=== PATIENT | male | born 1935 | race Caucasian/White ===

== ENCOUNTER → 2016-02-16 | Outpatient (CLI) | payer MEDICARE ==
[~2016-02-16] MED LIST: ASPIRIN325 MG PO; ATENOLOL25 MG PO; ATENOLOL50 MG PO; COLACE100 MG/10 PO; DOCUSATE SODIUM; FERROUS SULFAT325 M1 PO; FOLIC ACID; MELOXICAM15 MG PO; MOBIC15 MG PO; OMEPRAZOLE40 MG PO; OXYCODONE; PERCOCET 325 MG1 TA7 PO; POTASSIUM; PROTONIX40 MG PO; SERTRALINE HCL100 MG PO; SERTRALINE25 MG PO; SIMVASTATIN40 MG PO; VERAPAMIL ER; VIT B 1; VIT B 12; VITAMIN D-32000 UNI1 PO; XANAX0.25 MG PO; [UNRECOGNIZED DRUG - OTHER]
== END | disposition home or self-care (01) ==
LOC: LAB 09:48
DX: R63.4 Abnormal weight loss (principal); R89.9 Unspecified abnormal finding in specimens from other organs, systems and tissues; R06.02 Shortness of breath; Z87.891 Personal history of nicotine dependence; I10 Essential (primary) hypertension; M25.50 Pain in unspecified joint

== ENCOUNTER → 2016-02-27 | Day surgery (SDC) | payer MEDICARE ==
[2016-02-25 10:04] LABS: BASO # 0.1 10*3/uL (0.0-0.1); EOS # 0.3 10*3/uL (0.0-0.4); EOS % 3.6 % (1.0-4.0); HEMOGLOBIN 12.5 g/dl (14.0-18.0); LYMPH # 1.4 10*3/uL (1.3-4.4); LYMPH % 19.2 % (27.0-41.0); MEAN CELL VOLUME 105.1 fl (80.0-94.0); MEAN CORPUSCULAR HGB 33.7 pg (27.0-31.0); MEAN CORPUSCULAR HGB CONC 32.1 g/dl (33.0-37.0); MONO # 0.6 10*3/uL (0.1-1.0); MONO % 8.6 % (3.0-9.0); NEUT # 4.9 10*3/uL (2.3-7.9); NEUT % 67.3 % (47.0-73.0); PLATELET COUNT AUTOMATED 191 10*3/uL (130-400); RED BLOOD COUNT 3.71 10*6/uL (4.50-5.90); RED CELL DISTRI WIDTH 13.2 % (0-14.5); WHITE BLOOD COUNT 7.2 10*3/uL (4.8-10.8)
[2016-02-25 10:27] LABS: INTERNATIONAL NORM RATIO 1.1 (2.0-3.5); PROTHROMBIN TIME 11.2 SECONDS (9.0-12.4)
[2016-02-25 10:31] LABS: BUN 24 mg/dl (7-24); CARBON DIOXIDE 27 mmol/L (21-32); CHLORIDE 107 mmol/L (98-107); EST GLOM FILT AFRICAN AMERICAN > 60 ml/min; GLUCOSE 109 mg/dL (65-99); POTASSIUM 4.2 mmol/L (3.5-5.1); SODIUM 142 mmol/L (136-145)
[2016-02-25 10:40] LABS: BILIRUBIN NEGATIVE (NEGATIVE); BLOOD NEGATIVE (NEGATIVE); CLARITY CLEAR (CLEAR); COLOR YELLOW (YELLOW); GLUCOSE NEGATIVE (NEGATIVE); KETONE NEGATIVE (NEGATIVE); LEUKO ESTERASE NEGATIVE (NEGATIVE); NITRITE NEGATIVE (NEGATIVE); PH 6.5 (5.0-9.0); PROTEIN NEGATIVE (NEGATIVE); UROBILINOGEN 0.2 E.U./dl (0.2-1.0)
[2016-02-25 11:02] LABS: BACTERIA TRACE; WBC 0-2 wbc/hpf (0-5)
[~2016-02-27] VITALS: Ht 180.3 cm; Wt 78.5 kg
--- NOTE | ~2016-02-27 | PROC NOTE ---
[place], [place] PROCEDURE NOTE NAME: JESSICA NEW [facility] #: [id number] UNIT #: [id number] ROOM: DOCTOR: ANDI BLANK MD BIRTHDATE: [birth year] DOS: 02/27/2016 PREOPERATIVE DIAGNOSIS: Abnormal weight loss. POSTOPERATIVE DIAGNOSES: Hiatal hernia, pancolonic diverticulosis. PROCEDURE: Esophagogastroduodenoscopy with colonoscopy. ENDOSCOPIST: Andi Blank MD LEAD NITRATE PROCESSOR: MS3. ANESTHESIA: MAC. INDICATIONS: This is an 80-year-old gentleman referred by his family care physician for workup of abnormal weight loss. It was decided to take the patient to the endoscopy suite for a colonoscopy and an EGD. The procedure and its complications were explained to the patient preoperatively in detail. Complications that were discussed included but were not limited to bleeding, colon perforation, stomach perforation, and missed lesions. He agreed to proceed. DESCRIPTION OF PROCEDURE: After identifying the patient, the patient was brought to the endoscopy suite and laid in the left lateral position. After a time-out procedure was called, sedation was administered and a bite block was placed and EGD was performed first. An adult gastroscope was introduced into the mouth and advanced sequentially into the pharynx, esophagus, and stomach as well as the first 2 parts of the duodenum. There was found to be hiatal hernia which was uncomplicated, but otherwise, the mucosa of the esophagus, stomach and the duodenum was within normal limits. These findings were confirmed upon retroflexion of the scope in the stomach. The scope was withdrawn and then I proceeded to perform the colonoscopy. A digital rectal exam was performed, which was within normal limits. An adult colonoscope was now introduced into the anal canal and advanced sequentially into the sigmoid colon, descending colon, transverse colon, and ascending colon up to the cecum. There was found to be diverticulosis mainly in the sigmoid colon as well as in the transverse and some in the ascending colon as well. However, I could not identify any mucosal abnormalities. Upon reaching the cecum, the scope was withdrawn. The total withdrawal time was approximately 7 minutes. There was no mucosal abnormality seen again and pancolonic diverticulosis was seen on withdrawal of the scope. After the scope was withdrawn, the patient was taken to the recovery room in stable fashion. There were no complications. Dr. Andi Blank, the attending endoscopist, was present throughout the operating case. Based on these findings and the patient's age, I would recommend that the patient not have any more colonoscopies unless there are symptoms that would necessitate another similar examination. These findings were discussed with the patient's postoperatively. I will talk to the patient in approximately 2-3 weeks in the office about these findings as well. [place], [place] PROCEDURE NOTE NAME: JESSICA NEW UNIT #: [id number] ROOM: DOCTOR: ANDI BLANK MD BIRTHDATE: [birth year] Andi Blank MD CM:PROCNOTE:PROCEDURE NOTE [id number] ANDI BLANK MD
[2016-02-27 08:05] VITALS: BP 135/78
[2016-02-27 09:05] VITALS: BP 77/49
[2016-02-27 09:20] VITALS: BP 83/57
[2016-02-27 09:35] VITALS: BP 98/62
== END | disposition home or self-care (01) ==
LOC: SDC 02-24 09:30
PROVIDERS: Surgery
DX: K57.30 Diverticulosis of large intestine without perforation or abscess without bleeding (principal); K44.9 Diaphragmatic hernia without obstruction or gangrene; F32.9 Major depressive disorder, single episode, unspecified; I10 Essential (primary) hypertension; J45.909 Unspecified asthma, uncomplicated; K21.9 Gastro-esophageal reflux disease without esophagitis; Z83.3 Family history of diabetes mellitus; Z82.49 Family history of ischemic heart disease and other diseases of the circulatory system

== ENCOUNTER 2016-07-06 09:35 | Inpatient (IN) | payer MEDICARE ==
[~2016-07-06] VITALS: Ht 180.3 cm; Wt 72.1 kg
[2016-07-06 09:40] VITALS: BP 83/64
[2016-07-06] MEDS ORDERED: METAMUCIL0.52 G1 PO (09:53)
[2016-07-06] MEDS ORDERED: VITAMIN B1250 MCG PO (09:55)
[2016-07-06 10:09] VITALS: BP 135/77
[2016-07-06 10:28] LABS: BASO # 0.1 10*3/uL (0.0-0.1); BASO % 0.6 % (0.0-1.0); EOS # 0.5 10*3/uL (0.0-0.4); HEMATOCRIT 37.9 % (42.0-52.0); HEMOGLOBIN 12.6 g/dl (14.0-18.0); LYMPH # 1.4 10*3/uL (1.3-4.4); LYMPH % 14.7 % (27.0-41.0); MEAN CELL VOLUME 99.7 fl (80.0-94.0); MEAN CORPUSCULAR HGB 33.2 pg (27.0-31.0); MEAN CORPUSCULAR HGB CONC 33.2 g/dl (33.0-37.0); MEAN PLATELET VOLUME 9.1 fl (9.6-12.3); MONO # 0.9 10*3/uL (0.1-1.0); MONO % 9.7 % (3.0-9.0); NEUT # 6.6 10*3/uL (2.3-7.9); NEUT % 69.7 % (47.0-73.0); PLATELET COUNT AUTOMATED 220 10*3/uL (130-400); RED CELL DISTRI WIDTH 13.1 % (0-14.5); WHITE BLOOD COUNT 9.4 10*3/uL (4.8-10.8)
[2016-07-06 10:49] LABS: BUN 33 mg/dl (7-24); CARBON DIOXIDE 24 mmol/L (21-32); CHLORIDE 110 mmol/L (98-107); EST GLOM FILT AFRICAN AMERICAN 52 ml/min; GLUCOSE 79 mg/dL (65-99); MAGNESIUM 1.8 mg/dL (1.5-2.1); POTASSIUM 4.4 mmol/L (3.5-5.1); SODIUM 141 mmol/L (136-145)
[2016-07-06 10:50] LABS: TROPONIN I < 0.015 ng/ml (<0.045)
[2016-07-06 12:12] VITALS: BP 94/52
[2016-07-06 12:26] LABS: LA>2 REFLEX 2 HR DRAW NOW
[2016-07-06 12:45] VITALS: BP 115/60
[2016-07-06 16:00] VITALS: BP 104/59
[2016-07-06] MEDS ORDERED: K-TAB10 MEQ PO (16:17)
[2016-07-06] MEDS ORDERED: CALAN120 M1 PO (16:17)
[2016-07-06] MEDS ORDERED: VITAMIN B-1100 M1 PO (16:18)
[2016-07-06] MEDS ORDERED: ZOCOR10 MG PO (18:06)
[2016-07-06 20:00] VITALS: BP 128/58
[2016-07-07] VITALS: BP 121/60
[2016-07-07 06:43] LABS: BASO # 0.1 10*3/uL (0.0-0.1); BASO % 0.8 % (0.0-1.0); EOS # 0.7 10*3/uL (0.0-0.4); EOS % 8.5 % (1.0-4.0); HEMATOCRIT 33.9 % (42.0-52.0); HEMOGLOBIN 11.1 g/dl (14.0-18.0); LYMPH # 1.6 10*3/uL (1.3-4.4); LYMPH % 19.7 % (27.0-41.0); MEAN CELL VOLUME 101.8 fl (80.0-94.0); MEAN CORPUSCULAR HGB 33.3 pg (27.0-31.0); MEAN CORPUSCULAR HGB CONC 32.7 g/dl (33.0-37.0); MEAN PLATELET VOLUME 9.3 fl (9.6-12.3); MONO # 0.8 10*3/uL (0.1-1.0); MONO % 10.1 % (3.0-9.0); NEUT # 4.8 10*3/uL (2.3-7.9); NEUT % 60.6 % (47.0-73.0); PLATELET COUNT AUTOMATED 190 10*3/uL (130-400); RED BLOOD COUNT 3.33 10*6/uL (4.50-5.90); WHITE BLOOD COUNT 7.9 10*3/uL (4.8-10.8)
[2016-07-07 06:52] LABS: INTERNATIONAL NORM RATIO 1.1 (2.0-3.5); PROTHROMBIN TIME 11.9 SECONDS (9.0-12.4)
[2016-07-07 07:35] LABS: VITAMIN D, 25-HYDROXY 27.8 ng/mL (30-100)
[2016-07-07 07:36] LABS: FOLIC ACID 8.86 ng/mL (>5.38)
[2016-07-07 07:56] LABS: ALBUMIN 2.8 gm/dl (3.1-4.5); ALKALINE PHOSPHATASE 62 U/L (45-117); BILIRUBIN, TOTAL 0.9 mg/dl (0.2-1.0); BUN 25 mg/dl (7-24); CARBON DIOXIDE 27 mmol/L (21-32); CHLORIDE 111 mmol/L (98-107); CHOLESTEROL 123 mg/dL (<200); EST GLOM FILT AFRICAN AMERICAN > 60 ml/min; FREE T4 1.09 ng/dl (0.76-1.46); GLUCOSE 87 mg/dL (65-99); HDL CHOLESTEROL 37 mg/dl (40-60); LDL CHOLESTEROL 66 mg/dL (9-159); MAGNESIUM 1.8 mg/dL (1.5-2.1); POTASSIUM 4.5 mmol/L (3.5-5.1); SGOT/AST 11 IU/L (3-35); SGPT/ALT 13 U/L (12-78); SODIUM 143 mmol/L (136-145); TOTAL PROTEIN 6.7 gm/dL (6.4-8.2); TRIGLYCERIDES 98 mg/dl (<150); VLDL CHOLESTEROL 20 mg/dL (6-40)
[2016-07-07 08:00] VITALS: BP 122/64
[2016-07-07 12:00] VITALS: BP 132/62
== END 2016-07-07 16:09 | disposition home or self-care (01) | DRG 314 ==
LOC: ED 09:35 → 5E 11:18 → EDHOLD 11:18 → 5E 11:52
PROVIDERS: Emergency Medicine; Internal Medicine Hospice and Palliative Medicine
DX: I95.9 Hypotension, unspecified (principal); N17.0 Acute kidney failure with tubular necrosis; E87.2 Acidosis; I47.1 Supraventricular tachycardia; J84.112 Idiopathic pulmonary fibrosis; D53.9 Nutritional anemia, unspecified; R00.1 Bradycardia, unspecified; I10 Essential (primary) hypertension; K44.9 Diaphragmatic hernia without obstruction or gangrene; K21.9 Gastro-esophageal reflux disease without esophagitis; E78.5 Hyperlipidemia, unspecified; K57.30 Diverticulosis of large intestine without perforation or abscess without bleeding; Z96.651 Presence of right artificial knee joint; Z96.652 Presence of left artificial knee joint; Z87.891 Personal history of nicotine dependence; Z82.49 Family history of ischemic heart disease and other diseases of the circulatory system; Z88.1 Allergy status to other antibiotic agents; Z98.49 Cataract extraction status, unspecified eye; Z88.8 Allergy status to other drugs, medicaments and biological substances; Z79.82 Long term (current) use of aspirin; Z79.899 Other long term (current) drug therapy

== ENCOUNTER 2016-09-15 13:04 | Inpatient (IN) | payer MEDICARE ==
[~2016-09-15] VITALS: Ht 177.8 cm; Wt 66.5 kg
--- NOTE | ~2016-09-15 | PROC NOTE ---
[place], [place] PROCEDURE NOTE [id number] UNIT #: [id number] ROOM: 505 DOCTOR: TEO MERCER MD,BENITO BIRTHDATE: [birth year] DOS: 09/17/2016 PROCEDURE: Bronchoscopy. PREOPERATIVE DIAGNOSIS: Persistent nonresolving cough. POSTOPERATIVE DIAGNOSES: Removal of the moderate amount of mucus impaction of major airways, bilaterally, without any difficulty. PROCEDURE DESCRIPTION: Informed consent was obtained from the patient. The patient was brought to the OR and placed in supine position. Conscious sedation was administered by the Anesthesia Department. After achieving appropriate sedation, airway introduced into the mouth. Bronchoscope was advanced into the airway into laryngeal area. Epiglottis and vocal cords were seen. The vocal cords were noted yellowish in color moving symmetrically with the movements. The bronchoscope was advanced to the vocal cord and tracheal lumen, which showed moderate amount of thick mucoid secretions which was suctioned out the carmen level. Carmen noted sharp. Moderate amount of mucus plugs were noted of major airways. Right upper, right middle, right lower, left upper, lingular lower lobe were examined. Bronchial washing was collected and sent for the cultures. Procedure was tolerated by the patient without any difficulty. Postoperative findings were discussed with the patient's family members in detail. BENITO BRUCE MD CM:PROCNOTE:PROCEDURE NOTE [id number] BENITO MERCER MD
--- NOTE | ~2016-09-15 | CON ---
[place], [place] REPORT OF CONSULTATION NAME: JESSICA NEW [facility] #: [id number] UNIT #: [id number] ROOM: 505 DOCTOR: TEO MERCER MDBENITO BIRTHDATE: [birth year] DOS: 09/16/2016 PULMONARY CONSULTATION EVALUATION AND MANAGEMENT CONSULTATION REQUESTED BY: Hospitalist service. REASON FOR CONSULTATION: Assessment of cough and past history of pulmonary fibrosis. HISTORY OF PRESENT ILLNESS: This is an 80-year-old white male who has been known to me from the past with history of sarcoidosis with pulmonary fibrosis which was diagnosed with biopsy of the lymph node. The patient had a bronchoscopy as well as biopsy of the lymph node that was done in [facility] in 2012. The patient has been ____ managed as an outpatient, just observation, did not require any intervention for this pulmonary fibrosis. The patient reported symptoms of ____ chest pain. Denies any symptoms of wheezing. He does have a cough, which has been noted progressively worsened gradually. The cough, the patient described as present for the past month or so and not improving with current medical management. He denies any symptoms of chest pain. Denies symptoms of hemoptysis. He also reported symptoms of shortness of breath that occurs with exertion. REVIEW OF SYSTEMS: CONSTITUTIONAL: The patient was noted with symptoms of fatigue and tiredness. Denies symptoms of fever or chills. EYES: Denies any burning, redness, or tenderness. EARS, NOSE, AND THROAT: No sore throat, hoarseness, or otalgia. Postnasal drainage. CARDIOVASCULAR: Shortness of breath was noted without symptoms of anginal pain, edema or pain of the lower extremities. GASTROINTESTINAL: Denies dysphagia, nausea, vomiting, diarrhea, abdominal pain, hematemesis, melena, or hematochezia. SKIN: Denies any lesions or rashes. GENITOURINARY: Denies dysuria, suprapubic pain, or hematuria. MUSCULOSKELETAL: Denies acute joint pain, redness, or tenderness. Remaining systems were reviewed with the patient, they were noted all negative. PAST MEDICAL HISTORY: 1. History of ____ sarcoidosis. 2. Osteoarthritis. 3. Anxiety neurosis. 4. Essential hypertension. 5. Hyperlipidemia. 6. Atrial fibrillation. 7. AV deepa re-entry tachycardia. 8. Gastroesophageal reflux. 9. Hiatal hernia. 10. Vitamin D deficiency. PAST SURGICAL HISTORY: [place], [place] REPORT OF CONSULTATION [id number] UNIT #: [id number] ROOM: [facility] DOCTOR: TEO MERCER MDBENITO BIRTHDATE: 35 1. Cataract extraction with lens implantation. 2. Tonsillectomy and adenoidectomy. 3. Left total knee replacement. 4. AV node ablation done at [facility] in [place], [place]. 5. Fiberoptic bronchoscopy with ultrasound-guided needle aspiration biopsy of the lymph node in May 2012. SOCIAL HISTORY: The patient is , has 2 children. 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 He has not been known with any history of alcohol use or any illicit drug use. Tobacco use noted since age of [age] years old, a pack of cigarettes per day until 1961. FAMILY HISTORY: Father at the age of 6969 years old, complications related to myocardial infarction. Mother at age of 8989 years old secondary to congestive heart failure. MEDICATIONS: Listed at the time of admission were noted as use of Eliquis, atenolol, vitamin B12, meloxicam, Remeron, omeprazole, Metamucil, simvastatin, verapamil, and other p.r.n. medications. DRUG ALLERGIES: 1. AMOXICILLIN. 2. CHLORPROMAZINE. 3. TETRACYCLINES. PHYSICAL EXAMINATION: GENERAL: This is an 80-year-old white male who has been noted currently awake and alert without any acute distress at this time. Height 5 feet 10 inches. Weight 106 pounds, BMI 21.0. VITAL SIGNS: Normal temperature, respiratory rate 18-20, heart rate 52-80, blood pressure 91/60-108/57. Pulse oxygen saturation noted on room air 100%. HEENT: Shows head was atraumatic. Eyes: No icterus. NECK: Supple. CARDIOVASCULAR: S1, S2 audible. LUNGS: Moderately decreased breath sounds noted without any wheezing. Scattered inspiratory crackles bilaterally. ABDOMEN: Soft, flat, and nontender. EXTREMITIES: Showed no edema, clubbing, or cyanosis. LABORATORY DATA: The patient's lactic acid yesterday on admission 1.3, normal. CBC yesterday on admission, WBC count 14.3, hemoglobin 9.9, hematocrit 30.6, and platelet count 121,000. PT/INR 1.4. CMP yesterday on admission, BUN 32 and creatinine normal. Albumin 2.5. Remaining LFTs normal. Troponin yesterday and this morning, total of 3 sets were normal. CBC today, WBC count 11,000, hemoglobin 9.3, hematocrit 29.1, and platelet count was normal. CMP this morning, BUN 31 and creatinine was normal. The chest x-ray 1 view, which was taken at the Emergency Room on 09/15/2016, evidence of pulmonary fibrotic changes noted in the lungs bilaterally, greater in the right upper than the other lungs. Enlargement of the mediastinal ____ lymphadenopathy. [place], [place] REPORT OF CONSULTATION NAME: JESSICA NEW UNIT #: [id number] ROOM: [facility] DOCTOR: BENITO TO MD BIRTHDATE: [birth year] IMPRESSION: 1. The patient was ____ history of diagnosis of sarcoidosis with lymph node biopsy using the endobronchial ultrasound biopsy in May 2012. 2. Acute severe bronchitis noted and mucus impaction, progression of symptoms over a month. 3. Anemia, most likely chronic disease. 4. Mild azotemia noted, likely intravascular volume depletion. 5. History of atrial fibrillation, on anticoagulation with Eliquis. PLAN OF MANAGEMENT: The patient will be suggested about bronchoscopy. Risks and benefits of the procedure were discussed and he agreed with that. ____ clear the mucus impaction of major airway. The Eliquis was placed on hold temporarily until completion of the procedure. The Eliquis could be resumed tomorrow afternoon if there have been no complications with bronchoscopy. Continue other supportive therapy, plan of management and care. Usual treatment. Intravenous Rocephin 1 g daily. Further treatment changes will be done for the patient based on progression of the illness. BENITO BRUCE MD CM:CONSTR:REPORT OF CONSULTATION 1211 09/16/16 1500 interface
--- NOTE | ~2016-09-15 | PR ---
[place], [place] PROGRESS NOTE NAME: JESSICA NEW [facility] #: [id number] UNIT #: [id number] ROOM: 505 DOCTOR: TEO MERCER MD,BENITO BIRTHDATE: [birth year] DOS: 09/19/2016 SUBJECTIVE: He has been noted further reduction and improvement in symptoms of cough. Denies symptoms of chest pain. Denies any abdominal pain. Shortness of breath has been noted minimal. OBJECTIVE: VITAL SIGNS: Normal temperature, respiratory rate 20, heart rate 110-91, blood pressure 100/70-102/74. The pulse oxygen saturation on room air was 96% saturation. HEENT: Examination shows no acute change. NECK: Supple. CARDIOVASCULAR: S1, S2 audible. LUNGS: Noted without any wheezing or crackles. Breaths are noted [id number] decreased bilaterally. ABDOMEN: Soft, nontender. LABORATORY DATA: CBC of the patient that was done this morning noted as WBC count 11.8, hemoglobin 10.4, hematocrit 31.3, platelet count normal. Culture of the bronchial washing of the patient was noted with normal ladonna. The CMP of the patient this morning was noted as normal BUN and creatinine. IMPRESSION: The patient with acute tracheobronchitis with a history of sarcoidosis, acute bronchitis and cough, which has been noted with gradual improvement. PLAN OF TREATMENT: Continuation of the bronchodilators at his home, consider discharge home on oral antibiotics and other medications. Follow up in the office was advised couple of weeks post discharge. BENITO BRUCE MD CM:PNTRANS [id number] [id number] BENITO MERCER MD 09/19/16 2359 interface
--- NOTE | ~2016-09-15 | CON ---
[place], [place] REPORT OF CONSULTATION NAME: JESSICA NEW [facility] #: [id number] UNIT #: [id number] ROOM: 505 DOCTOR: DEENA MCCORDDANNIADINA BIRTHDATE: [birth year] DOS: 09/16/2016 REQUESTING PHYSICIAN: Dr. No. REASON FOR CONSULTATION: Atrial fibrillation. ASSESSMENT: 1. 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 2. Evidence of bronchitis per Dr. Palma. 3. History of pulmonary fibrosis/sarcoidosis. 4. History of atrial fibrillation, status post ablation with Dr. Patten. 5. Hyperlipidemia. 6. Anemia. 7. Normal ejection fraction on echocardiogram read by Dr. Adrian. PLAN: 1. Continue Eliquis. 2. Antibiotic per Dr. Palma. 3. Hold on any negative chronotropic agents. 4. No further cardiac testing at this time. 5. Early followup with Dr. Patten to address patient's taoist of normal sinus rhythm as an outpatient. 6. Increase activity. HISTORY AND PHYSICAL: The patient is a pleasant 80-year-old gentleman well known to our practice. 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 Apparently, the patient failed his ablation and underwent a ALLEY cardioversion at the [facility] with Dr. Noel. He has been doing quite well. He still works as a meier. Yesterday he started noticing while standing up, he was getting dizzy, lightheaded, symptoms got worse and this was along with some cough, some chills that is productive of yellowish sputum and the patient finally presented to the Emergency Room. The patient was found not to be in atrial fibrillation with a relatively controlled heart rate. There is no fever, no night sweats. Maintained good appetite, no weight loss. The patient reported significant improvement since yesterday while on the current antibiotic regimen. From the cardiology point of view, he denies any symptomatic palpitation or any associated dizziness, lightheadedness or near syncope. No chest pain, no chest pressure, no heaviness, no tightness, no left arm pain, no back pain. He sleeps on one pillow with no reported PND, orthopnea, or pedal edema. The patient overall has been relatively well before yesterday. PAST MEDICAL HISTORY: As detailed in my assessment. SOCIAL HISTORY: The patient denies any current tobacco, alcohol or illicit drug abuse. FAMILY HISTORY: Not applicable in view of patient's age. [place], [place] REPORT OF CONSULTATION NAME: JESSICA NEW UNIT #: [id number] ROOM: [facility] DOCTOR: NO SHAFFER MD BIRTHDATE: [birth year] CURRENT MEDICATIONS: Include azithromycin, thiamine, Protonix, Zocor, Remeron, Eliquis, Restoril, Zofran, Dulcolax, and Rocephin. ALLERGIES: THE PATIENT IS ALLERGIC TO AMPICILLIN, TETRACYCLINE AND CHLORPROMAZINE. REVIEW OF SYSTEMS: Currently, the patient denies any headache, diplopia or blurry vision. No fever, no chills, no night sweats. No abdominal pain, no bright red blood per rectum or tarry stools. The patient admits to joint pain, but no muscular pain. No anxiety, no depression. No polyuria, no polydipsia, no skin rash. Review of all other systems has been negative. PHYSICAL EXAMINATION: GENERAL: The patient is alert, oriented x3, quite pleasant. The patient sitting up in bed, does not appear in distress, just finished his lunch. VITAL SIGNS: Blood pressure 107/81, heart rate 69, respiratory rate of 18, temperature 98. HEENT: Extraocular muscles intact. Pupils equal, round, reactive to light. Conjunctivae, no pallor. Throat, no petechiae. NECK: Good carotid upstroke. Unable to appreciate any bruit. No lymphadenopathy, no thyromegaly. HEART: S1, S2 with a holosystolic murmur at left sternal border. Distant heart sounds. No rub, no retrosternal heave. CHEST AND BACK: No deformities. LUNGS: Significant decrease in air movement, but no mina wheezing or rales. ABDOMEN: Soft, nontender, present bowel sounds, no masses, no bruits. EXTREMITIES: Lower extremities, no edema with faint distal pulses. NEUROLOGIC: Grossly nonfocal. SKIN: No significant rash. LABORATORY DATA: White count 11.0, hemoglobin 9.3. There is no current left shift compared to yesterday when the patient had elevated neutrophils of 86%. Potassium 3.9. GFR more than 60. Normal liver function test except for low ALT of 11, albumin 2.2, total protein 6.5, HDL 29, total cholesterol 104, LDL 61 and triglycerides 69. Normal thyroid function test. NO SHAFFER MD CM:CONSTR:REPORT OF CONSULTATION 1549 09/17/16 0019 interface
--- NOTE | ~2016-09-15 | PR ---
[place], [place] PROGRESS NOTE [id number] UNIT #: [id number] ROOM: 505 DOCTOR: TEO MERCER MD,BENITO BIRTHDATE: [birth year] DOS: 09/17/2016 SUBJECTIVE: He has been noted to be n.p.o. past midnight for bronchoscopy. He is still noted to be coughing which has been noted to be nonproductive. He denies symptoms of chest pain. He denies symptoms of hemoptysis. OBJECTIVE: VITAL SIGNS: Normal temperature, respiratory rate of 20, heart rate 80 and blood pressure 126/64. The pulse oxygen saturation noted on 2 L nasal cannula was 100% saturation. HEENT: Shows no acute change. NECK: Supple. CARDIOVASCULAR: S1, S2 audible. LUNGS: Noted with moderate decreased breath sounds, scattered expiratory wheezing. ABDOMEN: Soft, nontender. LABORATORY DATA: CBC today: WBC count 16.2, hemoglobin 10.7, hematocrit 33.8 and platelet count was normal. Culture of the urine showed no bacterial growth. BMP this morning: Normal BUN, creatinine and electrolytes. IMPRESSION: The patient who has been noted currently stable at the present time is noted with persistent coughing. The patient has a history of sarcoidosis and other problems. N.p.o. past midnight for bronchoscopy. PLAN OF TREATMENT: The patient would be continued with current plan of treatment at this time without any changes. The Eliquis was placed on hold for the bronchoscopy today. However, the Eliquis could be resumed after his bronchoscopy if there would be no complications. BENITO BRUCE MD CM:PNTRANS 0946 1005 BENITO MERCER MD 09/17/16 1005 interface
--- NOTE | ~2016-09-15 | PR ---
[place], [place] PROGRESS NOTE NAME: JESSICA NEW [facility] #: [id number] UNIT #: [id number] ROOM: 505 DOCTOR: TEO MERCER MD,BENITO BIRTHDATE: [birth year] DOS: 09/18/2016 SUBJECTIVE: He has a bronchoscopy done yesterday with mild reduction in the cough was noted. There were no symptoms of chest pain or any abdominal pain. OBJECTIVE: VITAL SIGNS: For the patient which were recorded showed normal temperature, respiratory rate 18, heart rate 99, blood pressure 108/58. Pulse oxygen saturation on room air was 97% saturation. HEENT: Showed no acute change. NECK: Supple. CARDIOVASCULAR SYSTEM: S1, S2 audible. LUNGS: The patient was noted without any wheezing or crackles at this time. ABDOMEN: Soft, nontender. IMPRESSION: The patient has a history of sarcoidosis with acute tracheobronchitis with status post bronchoscopy and removal of the mucous impaction with reduction of the symptoms. PLAN OF TREATMENT: No changes from the pulmonary standpoint. Monitor culture results. Consider possible discharge home in the morning. Continue other supportive therapy, plan of management and care. Usual treatments. BENITO BRUCE MD CM:SHIKHA [id number] 1302 BENITO MERCER MD 09/18/16 1302 interface
[~2016-09-15 13:04] MED LIST changes: +CALAN120 M1 PO; +K-TAB10 MEQ PO; +METAMUCIL0.52 G1 PO; +VITAMIN B-1100 M1 PO; +VITAMIN B1250 MCG PO; +ZOCOR10 MG PO
[2016-09-15 13:25] VITALS: BP 98/72
[2016-09-15 14:23] LABS: BASO # 0.1 10*3/uL (0.0-0.1); BASO % 0.4 % (0.0-1.0); EOS # 0.1 10*3/uL (0.0-0.4); EOS % 0.6 % (1.0-4.0); HEMATOCRIT 30.6 % (42.0-52.0); HEMOGLOBIN 9.9 g/dl (14.0-18.0); IG # 0.1 10*3/uL (0.0-0.1); LYMPH # 0.9 10*3/uL (1.3-4.4); LYMPH % 6.3 % (27.0-41.0); MEAN CELL VOLUME 100.3 fl (80.0-94.0); MEAN CORPUSCULAR HGB 32.5 pg (27.0-31.0); MEAN CORPUSCULAR HGB CONC 32.4 g/dl (33.0-37.0); MONO # 0.9 10*3/uL (0.1-1.0); NEUT # 12.3 10*3/uL (2.3-7.9); NEUT % 86.3 % (47.0-73.0); PLATELET COUNT AUTOMATED 221 10*3/uL (130-400); RED BLOOD COUNT 3.05 10*6/uL (4.50-5.90); RED CELL DISTRI WIDTH 13.4 % (0-14.5); WHITE BLOOD COUNT 14.2 10*3/uL (4.8-10.8)
[2016-09-15 14:34] VITALS: BP 92/50
[2016-09-15 14:34] LABS: INTERNATIONAL NORM RATIO 1.4 (2.0-3.5); PROTHROMBIN TIME 14.6 SECONDS (9.0-12.4)
[2016-09-15 14:46] LABS: ALBUMIN 2.5 gm/dl (3.1-4.5); ALKALINE PHOSPHATASE 59 U/L (45-117); BILIRUBIN, TOTAL 0.9 mg/dl (0.2-1.0); BUN 33 mg/dl (7-24); CARBON DIOXIDE 23 mmol/L (21-32); CHLORIDE 107 mmol/L (98-107); CPK 56 U/L (39-308); EST GLOM FILT AFRICAN AMERICAN > 60 ml/min; GLUCOSE 113 mg/dL (65-99); LDH 159 U/L (87-241); MAGNESIUM 1.9 mg/dL (1.5-2.1); POTASSIUM 3.9 mmol/L (3.5-5.1); SGOT/AST 7 IU/L (3-35); SGPT/ALT 11 U/L (12-78); SODIUM 138 mmol/L (136-145); TOTAL PROTEIN 7.1 gm/dL (6.4-8.2)
[2016-09-15 14:47] LABS: CKMB 1.2 ng/ml (0.5-3.6); TROPONIN I < 0.015 ng/ml (<0.045)
[2016-09-15 15:33] LABS: BILIRUBIN 1+ (NEGATIVE); BLOOD TRACE-INTACT (NEGATIVE); CLARITY CLEAR (CLEAR); COLOR YELLOW (YELLOW); GLUCOSE NEGATIVE (NEGATIVE); KETONE NEGATIVE (NEGATIVE); LEUKO ESTERASE 1+ (NEGATIVE); NITRITE NEGATIVE (NEGATIVE); PH 5.5 (5.0-9.0); PROTEIN NEGATIVE (NEGATIVE)
[2016-09-15 15:41] LABS: BACTERIA TRACE; RBC 0-2 rbc/hpf (0-2); URINE REFLEX COMMENT YES (NO)
[2016-09-15 15:54] VITALS: BP 90/46
[2016-09-15 16:15] VITALS: BP 90/50
[2016-09-15 17:03] VITALS: BP 98/64
[2016-09-15] MEDS ORDERED: ELIQUIS5 M1 PO (17:29)
[2016-09-15] MEDS ORDERED: MIRTAZAPINE15 M2 PO (18:45)
[2016-09-15 20:00] VITALS: BP 92/49
[2016-09-16] VITALS: BP 108/57
[2016-09-16 04:00] VITALS: BP 108/57
[2016-09-16 06:04] LABS: BASO # 0.1 10*3/uL (0.0-0.1); BASO % 0.5 % (0.0-1.0); EOS # 0.6 10*3/uL (0.0-0.4); EOS % 5.4 % (1.0-4.0); HEMATOCRIT 29.1 % (42.0-52.0); HEMOGLOBIN 9.3 g/dl (14.0-18.0); IG # 0.1 10*3/uL (0.0-0.1); LYMPH # 1.6 10*3/uL (1.3-4.4); LYMPH % 14.7 % (27.0-41.0); MEAN CELL VOLUME 101.7 fl (80.0-94.0); MEAN CORPUSCULAR HGB 32.5 pg (27.0-31.0); MEAN PLATELET VOLUME 9.5 fl (9.6-12.3); MONO % 8.9 % (3.0-9.0); NEUT # 7.7 10*3/uL (2.3-7.9); PLATELET COUNT AUTOMATED 211 10*3/uL (130-400); RED BLOOD COUNT 2.86 10*6/uL (4.50-5.90); RED CELL DISTRI WIDTH 13.5 % (0-14.5)
[2016-09-16 06:28] LABS: ALBUMIN 2.2 gm/dl (3.1-4.5); ALKALINE PHOSPHATASE 54 U/L (45-117); BILIRUBIN, TOTAL 0.6 mg/dl (0.2-1.0); BUN 31 mg/dl (7-24); CARBON DIOXIDE 25 mmol/L (21-32); CHLORIDE 108 mmol/L (98-107); CHOLESTEROL 104 mg/dL (<200); EST GLOM FILT AFRICAN AMERICAN > 60 ml/min; FREE T4 1.47 ng/dl (0.76-1.46); GLUCOSE 88 mg/dL (65-99); HDL CHOLESTEROL 29 mg/dl (40-60); LDL CHOLESTEROL 61 mg/dL (9-159); MAGNESIUM 1.5 mg/dL (1.5-2.1); PHOSPHOROUS 2.7 mg/dL (2.5-4.9); POTASSIUM 3.9 mmol/L (3.5-5.1); SGOT/AST 6 IU/L (3-35); SGPT/ALT 11 U/L (12-78); SODIUM 139 mmol/L (136-145); TOTAL PROTEIN 6.5 gm/dL (6.4-8.2); TRIGLYCERIDES 69 mg/dl (<150); VLDL CHOLESTEROL 14 mg/dL (6-40)
[2016-09-16 06:34] LABS: THYROID STIM HORMONE (HS) 0.995 uIU/ml (0.358-4.75)
[2016-09-16 07:10] LABS: HEMOGLOBIN A1c 5.5 % (4.8-5.6)
[2016-09-16 07:29] LABS: FOLIC ACID 7.76 ng/mL (>5.38); VITAMIN D, 25-HYDROXY 31.8 ng/mL (30-100)
[2016-09-16 08:00] VITALS: BP 91/62
[2016-09-16 12:00] VITALS: BP 107/81
[2016-09-16 16:00] VITALS: BP 118/73
[2016-09-16 20:00] VITALS: BP 108/73
[2016-09-17] VITALS (9 sets, daily range): BP systolic 99–126; BP diastolic 55–67
[2016-09-17 06:27] LABS: BASO # 0.1 10*3/uL (0.0-0.1); BASO % 0.4 % (0.0-1.0); EOS # 0.8 10*3/uL (0.0-0.4); EOS % 4.9 % (1.0-4.0); HEMATOCRIT 33.8 % (42.0-52.0); HEMOGLOBIN 10.7 g/dl (14.0-18.0); IG # 0.1 10*3/uL (0.0-0.1); LYMPH # 1.5 10*3/uL (1.3-4.4); LYMPH % 9.3 % (27.0-41.0); MEAN CELL VOLUME 102.1 fl (80.0-94.0); MEAN CORPUSCULAR HGB 32.3 pg (27.0-31.0); MEAN CORPUSCULAR HGB CONC 31.7 g/dl (33.0-37.0); MEAN PLATELET VOLUME 9.4 fl (9.6-12.3); MONO # 1.5 10*3/uL (0.1-1.0); MONO % 9.1 % (3.0-9.0); NEUT # 12.3 10*3/uL (2.3-7.9); NEUT % 75.7 % (47.0-73.0); PLATELET COUNT AUTOMATED 260 10*3/uL (130-400); RED BLOOD COUNT 3.31 10*6/uL (4.50-5.90); RED CELL DISTRI WIDTH 13.3 % (0-14.5); WHITE BLOOD COUNT 16.2 10*3/uL (4.8-10.8)
[2016-09-17 06:53] LABS: BUN 24 mg/dl (7-24); CARBON DIOXIDE 27 mmol/L (21-32); CHLORIDE 104 mmol/L (98-107); EST GLOM FILT AFRICAN AMERICAN > 60 ml/min; GLUCOSE 92 mg/dL (65-99); POTASSIUM 3.9 mmol/L (3.5-5.1); SODIUM 137 mmol/L (136-145)
[2016-09-18] VITALS: BP 130/78
[2016-09-18 05:51] LABS: BASO # 0.1 10*3/uL (0.0-0.1); BASO % 0.5 % (0.0-1.0); EOS # 0.6 10*3/uL (0.0-0.4); EOS % 4.3 % (1.0-4.0); HEMATOCRIT 29.5 % (42.0-52.0); HEMOGLOBIN 9.5 g/dl (14.0-18.0); LYMPH # 1.4 10*3/uL (1.3-4.4); LYMPH % 10.5 % (27.0-41.0); MEAN CELL VOLUME 101.7 fl (80.0-94.0); MEAN CORPUSCULAR HGB 32.8 pg (27.0-31.0); MEAN CORPUSCULAR HGB CONC 32.2 g/dl (33.0-37.0); MEAN PLATELET VOLUME 9.4 fl (9.6-12.3); MONO # 1.1 10*3/uL (0.1-1.0); MONO % 8.4 % (3.0-9.0); PLATELET COUNT AUTOMATED 223 10*3/uL (130-400); RED CELL DISTRI WIDTH 13.4 % (0-14.5); WHITE BLOOD COUNT 13.2 10*3/uL (4.8-10.8)
[2016-09-18 08:00] VITALS: BP 125/74
[2016-09-18 12:00] VITALS: BP 108/58
[2016-09-18 16:00] VITALS: BP 100/52; BP 118/67
[2016-09-18 20:00] VITALS: BP 96/65
[2016-09-19] VITALS: BP 129/82
[2016-09-19 06:08] LABS: BASO % 0.3 % (0.0-1.0); EOS # 0.5 10*3/uL (0.0-0.4); EOS % 3.8 % (1.0-4.0); HEMATOCRIT 31.7 % (42.0-52.0); HEMOGLOBIN 10.4 g/dl (14.0-18.0); LYMPH # 1.4 10*3/uL (1.3-4.4); LYMPH % 11.5 % (27.0-41.0); MEAN CELL VOLUME 100.6 fl (80.0-94.0); MEAN CORPUSCULAR HGB CONC 32.8 g/dl (33.0-37.0); MEAN PLATELET VOLUME 9.6 fl (9.6-12.3); MONO # 1.1 10*3/uL (0.1-1.0); MONO % 9.4 % (3.0-9.0); NEUT # 8.8 10*3/uL (2.3-7.9); NEUT % 74.7 % (47.0-73.0); PLATELET COUNT AUTOMATED 264 10*3/uL (130-400); RED BLOOD COUNT 3.15 10*6/uL (4.50-5.90); RED CELL DISTRI WIDTH 13.3 % (0-14.5); WHITE BLOOD COUNT 11.8 10*3/uL (4.8-10.8)
[2016-09-19 06:27] LABS: ALBUMIN 2.4 gm/dl (3.1-4.5); BUN 16 mg/dl (7-24); CARBON DIOXIDE 26 mmol/L (21-32); CHLORIDE 104 mmol/L (98-107); GLUCOSE 96 mg/dL (65-99); POTASSIUM 4.2 mmol/L (3.5-5.1); SODIUM 137 mmol/L (136-145)
[2016-09-19 06:31] LABS: ALKALINE PHOSPHATASE 56 U/L (45-117); BILIRUBIN, TOTAL 0.7 mg/dl (0.2-1.0); EST GLOM FILT AFRICAN AMERICAN > 60 ml/min; SGOT/AST 10 IU/L (3-35); SGPT/ALT 16 U/L (12-78); TOTAL PROTEIN 6.9 gm/dL (6.4-8.2)
[2016-09-19 08:00] VITALS: BP 102/74; BP 132/88
[2016-09-19] MEDS ORDERED: AVPAK AZITHROM250 MG PO (10:38)
[2016-09-19] MEDS ORDERED: TOPROL XL50 M1 PO (10:38)
[2016-09-19] MEDS ORDERED: SUPRAX400 M2 PO (10:39)
[2016-09-19 12:00] VITALS: BP 100/70
[2016-09-19] MEDS ORDERED: Motrin,Rufen800 MG PO (15:04)
[2016-09-19 16:00] VITALS: BP 107/68
== END 2016-09-19 17:00 | disposition home or self-care (01) | DRG 314 ==
LOC: ED 13:04 → EDHOLD 16:12 → 5E 16:12
PROVIDERS: Family Medicine; Internal Medicine Critical Care Medicine; Internal Medicine Hospice and Palliative Medicine; Physician Assistant; Student in an Organized Health Care Education/Training Program
PROC: 0BB38ZX Excision of Right Main Bronchus, Via Natural or Artificial Opening Endoscopic, Diagnostic (ICD-10-PCS; principal; 2016-09-17)
PROC: 0BB78ZX Excision of Left Main Bronchus, Via Natural or Artificial Opening Endoscopic, Diagnostic (ICD-10-PCS; principal; 2016-09-17)
PROC: 0BC28ZZ Extirpation of Matter from Carina, Via Natural or Artificial Opening Endoscopic (ICD-10-PCS; principal; 2016-09-17)
DX: I95.9 Hypotension, unspecified (principal); R65.11 Systemic inflammatory response syndrome (SIRS) of non-infectious origin with acute organ dysfunction; E43 Unspecified severe protein-calorie malnutrition; I11.0 Hypertensive heart disease with heart failure; I50.32 Chronic diastolic (congestive) heart failure; N39.0 Urinary tract infection, site not specified; J84.112 Idiopathic pulmonary fibrosis; D86.9 Sarcoidosis, unspecified; I47.1 Supraventricular tachycardia; K21.9 Gastro-esophageal reflux disease without esophagitis; I48.91 Unspecified atrial fibrillation; E78.5 Hyperlipidemia, unspecified; E86.0 Dehydration; R73.9 Hyperglycemia, unspecified; D53.9 Nutritional anemia, unspecified; Z68.21 Body mass index [BMI] 21.0-21.9, adult; E55.9 Vitamin D deficiency, unspecified; E53.8 Deficiency of other specified B group vitamins; F32.9 Major depressive disorder, single episode, unspecified; J20.9 Acute bronchitis, unspecified; M19.90 Unspecified osteoarthritis, unspecified site; Z96.1 Presence of intraocular lens; R59.0 Localized enlarged lymph nodes; Z96.653 Presence of artificial knee joint, bilateral; Z98.49 Cataract extraction status, unspecified eye; Z87.81 Personal history of (healed) traumatic fracture; Z87.891 Personal history of nicotine dependence; Z88.1 Allergy status to other antibiotic agents; Z88.8 Allergy status to other drugs, medicaments and biological substances; Z82.49 Family history of ischemic heart disease and other diseases of the circulatory system; Z82.3 Family history of stroke; Z83.3 Family history of diabetes mellitus